=== PATIENT | female | born 1980 | race Two or more races ===

== ENCOUNTER 2016-11-10 12:08 | Emergency (ER) | payer SELFPAY ==
[~2016-11-10] VITALS: Ht 152.4 cm; Wt 83.9 kg
[2016-11-10 13:06] LABS: Urine Bilirubin Negative (Negative); Urine Blood Negative /uL (Negative); Urine Color Colorless (Yellow); Urine Glucose Normal (Normal); Urine Ketone Negative (Negative); Urine Nitrite Negative (Negative); Urine RBC <1 /hpf (0 - 4); Urine Squamous Epithelial Cell FEW /hpf (<5); Urine Urobilinogen Normal (Negative)
[2016-11-10 13:28] LABS: Albumin 3.7 g/dL (3.4-5.0); BUN/Creatinine Ratio 15.7; Calcium 8.6 mg/dL (8.5-10.1); Magnesium 2.2 mg/dL (1.6-2.6); Potassium 3.8 mmol/L (3.5-5.1)
[2016-11-10 13:30] LABS: Basophils # (auto) 0.2 uL; Basophils % (auto) 2.7 % (0.0-2.0); DEFINITIVE VIEW TRANSMISSION; Eosinophils # (auto) 0.3 uL; Eosinophils % (auto) 4.2 % (0.0-7.0); Hematocrit 40.5 % (36.0-46.0); Hemoglobin 12.7 g/dL (12.2-16.2); Lymphocytes # (auto) 2.9 uL; Lymphocytes % (auto) 40.3 % (10.0-50.0); Mean Corpuscular Hemoglobin 26.3 pg (28.0-32.0); Mean Corpuscular Hgb Conc. 31.3 g/dL (32.0-36.0); Mean Corpuscular Volume 84.1 fL (80.0-100.0); Mean Platelet Volume 8.1 fL (7.4-10.4); Monocytes # (auto) 0.3 uL; Monocytes % (auto) 4.7 % (0.0-12.0); Neutrophils # (auto) 3.5 uL; Neutrophils % (auto) 48.1 % (37.0-80.0); Platelet Count (auto) 333 10^3/uL (140-450); Red Cell Distribution Width 15.5 % (11.6-16.0); White Blood Cell 7.2 10^3/uL (4.4-10.8)
[2016-11-10 13:31] LABS: Bilirubin, Total 0.4 mg/dL (0.2-1.0); Total Protein 8.3 g/dL (6.4-8.2)
[2016-11-10] MEDS ORDERED: KETAMINE HCL 50 MG/ML 10ML VIAL ONE (14:42)
[2016-11-10] MEDS ORDERED: IOHEXOL 350 MG/ML 100ML IJ ONE (20:46)
[2016-11-10 22:39] VITALS: BP 124/81
== END 2016-11-10 23:23 | disposition home or self-care (01) ==
LOC: ER 12:21
DX: R20.0 Anesthesia of skin (principal); R07.9 Chest pain, unspecified; R53.1 Weakness
CPT/HCPCS: 36415; 70450; 71010; 71275; 80053; 81001; 81025; 83735; 84443; 84484; 85025; 85379; 93005; 99285; Q9967